=== PATIENT | female | born 1985 | race Caucasian/White ===

== ENCOUNTER 2019-09-09 22:02 | Emergency (ER) | payer BC ==
[~2019-09-09] VITALS: Ht 165.1 cm; Wt 75.0 kg
[2019-09-09 22:28] VITALS: BP 122/86; Ht 165.1 cm; Wt 75.0 kg
== END 2019-09-09 23:17 | disposition home or self-care (01) ==
LOC: ED 22:02
DX: S61.452A Open bite of left hand, initial encounter (principal); W57.XXXA Bitten or stung by nonvenomous insect and other nonvenomous arthropods, initial encounter; Y93.89 Activity, other specified; Y92.89 Other specified places as the place of occurrence of the external cause; Y99.8 Other external cause status